=== PATIENT | female | born 1945 | race Caucasian/White ===

== ENCOUNTER 2017-02-02 11:39 | Day surgery (SDC) | payer OTHER ==
--- NOTE | ~2017-02-02 | OP ---
Record Of Operation [facility] [address] [place]. [address] NAME: LISETH KRAUSE : 41 STATUS : [facility]#: [id number] AGE: 72 ADM/REG DATE : 02/02/17 MR#: [id number] REPORT SERV DATE: 02/02/17 DICTATED BY: LUPE HERNANDEZ DATE: 02/02/17 REPORT STATUS : Draft TRANSCRIBED BY: MODL DATE: 02/02/17 DATE OF PROCEDURE: 02/02/2017 ATTENDING SURGEON: Lupe Hernandez M.D., General Surgery, present and scrubbed throughout. PREOPERATIVE DIAGNOSIS: Metastatic pancreatic cancer. POSTOPERATIVE DIAGNOSIS: Metastatic pancreatic cancer. PROCEDURE: Placement of Port-A-Cath with ultrasound guidance. ANESTHESIA: MAC. EBL: Less than 25 mL. COMPLICATIONS: None. SPECIMEN: None. BRIEF HISTORY: The patient is a very pleasant, white female, with a reported diagnosis of metastatic pancreatic cancer. The patient has elected to undergo chemotherapy and is in need of a Port-A-Cath due to phlebosclerosis. The risks, benefits, and alternatives to the procedure were explained to the patient in detail. The risks include, but are not limited to, bleeding, infection, reoperation, injury to surrounding structures, reactions to anesthetic medications, perioperative cardiopulmonary events, perioperative thromboembolic events, Port-A-Cath misplacement, possible . The patient stated clear understanding of all the risks and requested the procedure be done. DESCRIPTION OF PROCEDURE: After surgical consent was obtained. The patient was transported to the operative theater, onto the operating room table in supine position. MAC anesthesia was administered without difficulty. The patient's neck and chest were prepped and draped in a standard sterile fashion. A time-out was performed in order to ensure the proper patient, procedure, and perioperative antibiotics were given. Using ultrasound guidance, we identified the right internal jugular vein and accessed it using a needle. A guidewire was placed down the vein without difficulty and its placement was confirmed with fluoroscopy. Stab incision was made in the neck over the guidewire, and an incision was made in the right chest for the port placement. We injected this area with local anesthetic as well as the right neck. We then tunneled the catheter from the port site of the chest up to the right neck. The pull away sheath and dilator were placed over the guidewire and the guidewire and dilator were removed. The catheter was advanced down the pull away sheath and the sheath was removed. Under fluoroscopic guidance, we pulled back the catheter to just above the right atrium. It was cut at the port site and then attached to the port without difficulty. The system was able to be easily aspirated and flushed. We placed the port inside the chest wall cavity and secured it with interrupted Prolene sutures. We irrigated out the wounds with sterile saline and then closed the dermis with interrupted Vicryls. The epidermis was then closed with Dermabond. At the end the procedure, the instrument, lap, needle counts Record Of [address] [address] NAME: LISETH KRAUSE : 41 STATUS : [facility]#: [id number] AGE: 72 ADM/REG DATE : 02/02/17 MR#: [id number] REPORT SERV DATE: 02/02/17 DICTATED BY: LUPE HERNANDEZ DATE: 02/02/17 REPORT STATUS : Draft TRANSCRIBED BY: CARLYLE DATE: 02/02/17 were all correct. The patient was awoken from anesthesia, having tolerated the procedure with difficulty, and returned to the PACU in stable condition. CATHLEEN/CARLYLE Lupe Hernandez MD / [id number] CC: MD Isela Plunkett MD
[~2017-02-02 11:39] MED LIST: ARIMIDEX1 PO; CALTRA600D PO; FIORINALC PO; FOSAMAX70 MG PO; MARI2.5 PO; OS500 PO; RYTHMOL150 MG PO; ULTRAM50 PO; ZOFRAN4 PO
[2017-02-02 12:17] LABS: HEMATOCRIT 38.6 % (36.0-48.0); HEMOGLOBIN 13.6 g/dL (12.0-16.0)
[2017-02-02 12:31] LABS: BUN (BLOOD UREA NITROGEN) 18 MG/DL (6-23); CALCIUM, SERUM 8.4 MG/DL (8.5-10.4); CHLORIDE, SERUM 106 MMOL/L (96-112); CO2 (CARBON DIOXIDE) 26 MMOL/L (24-34); CREATININE 0.53 MG/DL (0.55-1.02); GFR AFRICAN AMERICAN 108 ML/MIN (>=60); GFR NON AFRICAN AMERICAN 94 ML/MIN (>=60); GLUCOSE, SERUM 105 MG/DL (60-99); POTASSIUM, SERUM 3.7 MMOL/L (3.5-5.3); SODIUM, SERUM 140 MMOL/L (135-148)
== END 2017-02-02 16:25 | disposition home or self-care (01) ==
LOC: SDC 11:39
PROVIDERS: Transplant Surgery
PROC: 4A023N8 Measurement of Cardiac Sampling and Pressure, Bilateral, Percutaneous Approach (ICD-10-PCS; principal; 2017-02-02 12:45)
DX: C50.919 Malignant neoplasm of unspecified site of unspecified female breast (principal); C78.89 Secondary malignant neoplasm of other digestive organs; M81.0 Age-related osteoporosis without current pathological fracture; G43.909 Migraine, unspecified, not intractable, without status migrainosus; Z85.3 Personal history of malignant neoplasm of breast; Z88.5 Allergy status to narcotic agent; Z98.890 Other specified postprocedural states; Z88.8 Allergy status to other drugs, medicaments and biological substances; Z77.22 Contact with and (suspected) exposure to environmental tobacco smoke (acute) (chronic); Z90.49 Acquired absence of other specified parts of digestive tract; Z86.010 Personal history of colon polyps; Z87.442 Personal history of urinary calculi
CPT/HCPCS: 71010; 80048; 85014; 85018; 93005; C1788; J0690; J2405; J3010

== ENCOUNTER 2017-02-06 13:37 | Inpatient (IN) | payer OTHER ==
--- NOTE | ~2017-02-06 | DS ---
Discharge Summary [id number] [place]. [address] NAME: LISETH KRAUSE : 41 STATUS : DIS IN PAT#: [id number] AGE: 72 ADM/REG DATE : 02/06/17 MR#: [id number] REPORT SERV DATE: 02/09/17 DICTATED BY: NOE RIBERA DATE: 02/08/17 REPORT STATUS : Draft TRANSCRIBED BY: MODL DATE: 02/08/17 ADMISSION DATE: 02/06/2017 DISCHARGE DATE: 02/08/2017 DISCHARGE DIAGNOSES: 1. Nausea and vomiting, chemotherapy induced. 2. Metastatic pancreatic cancer with liver metastasis. 3. Pancytopenia, chemotherapy induced. 4. History of atrial flutter, status post ablation. CONSULTATION: Oncology, Dr. Roger Gutierrez. LABORATORY DATA: WBC 8.9, hemoglobin 9.8, hematocrit 28.1, and platelet count 133. Sodium is 140, potassium is 4.2, chloride is 106, CO2 is 27, BUN is 21, creatinine of 0.50, glucose is 131, calcium is 8.9, and magnesium is 1.9. COURSE OF HOSPITAL STAY: Please refer to history and physical dictated by Dr. Chucho Liriano on 02/06/2017 for complete admission details. This patient is a 72-year-old female with a history of metastatic pancreatic cancer with known liver metastasis who presented as a direct admission from Dr. Roger Gutierrez's office due to persistent nausea and vomiting. The patient had completed one cycle of chemotherapy and had persistent nausea and vomiting following unable to keep anything down. The patient was admitted for IV hydration and nausea control. 1. Nausea and vomiting, chemo induced. As noted above, the patient completed one cycle of chemotherapy. The patient was admitted for IV hydration and antiemetics. The patient was started on Decadron IV as well as Compazine scheduled dosing as well as Zofran p.r.n. for breakthrough nausea. The patient will be discharged home with Compazine 10 mg three times a day as well as Zofran p.r.n. Marinol was increased to 5 mg dosing, to be re-evaluated as an outpatient with Dr. Gutierrez. 2. Metastatic pancreatic cancer with known liver metastasis. The patient will follow up with Dr. Gutierrez on 02/14/2017 at 0130 hours to discuss possible treatment and to discuss possible chemotherapy that day. 3. Pancytopenia, chemo induced. As noted, when the patient was admitted, WBC count was 2.1, hemoglobin was 10.10, hematocrit was 30.7, and platelet count of 125. It was noted at this time WBC count is 8.9, hemoglobin of 9.8, hematocrit of 28.1, and platelet count is 133. No transfusions were needed during her hospital stay. These will be followed up with Dr. Gutierrez as an outpatient. 4. History of atrial flutter, status post ablation. The patient's Rythmol was continued during her hospital stay. No abnormalities noted during this time. DISCHARGE MEDICATIONS: 1. Calcium plus vitamin D 600 mg p.o. daily. 2. Marinol 5 mg one p.o. breakfast and supper. 3. Rythmol 150 mg one p.o. every 12 hours. 4. Compazine 10 mg three times daily. Discharge Summary [address] [address] NAME: LISETH KRAUSE : 41 STATUS : DIS IN PAT#: [id number] AGE: 72 ADM/REG DATE : 02/06/17 MR#: [id number] REPORT SERV DATE: 02/09/17 DICTATED BY: NOE RIBERA DATE: 02/08/17 REPORT STATUS : Draft TRANSCRIBED BY: CARLYLE DATE: 02/08/17 5. Ultram 50 mg one p.o. three times daily p.r.n. for pain. 6. Zofran 4 mg ODT p.r.n. every four hours p.r.n. for nausea. 7. Fiorinal capsule, one capsule p.o. every four hours p.r.n. 8. Fosamax 70 mg p.o. every seven days. This patient is being discharged home in hemodynamically stable condition, will follow up with Dr. Roger Gutierrez's office and see his nurse practitioner, Xiomy Goins on 02/14/2017. Prescriptions for the patient were provided, Zofran and Compazine. The patient is aware to increase her Marinol to 5 mg twice daily. Does state that she has the medication at home. Does not need a prescription. This discharge took less than 30 minutes. DICTATED BY: NEHEMIAS Herrmann/CARLYLE Noe Ribera NP / [id number] CC: Minda [place] MD
--- NOTE | ~2017-02-06 | HP ---
History And Physical [address] [place]. [address] NAME: LISETH KRAUSE : 41 STATUS : ADM IN [facility]#: [id number] AGE: 72 ADM/REG DATE : 02/06/17 MR#: [id number] REPORT SERV DATE: 02/06/17 DICTATED BY: MERLENE CARD II DATE: 02/06/17 REPORT STATUS : Draft TRANSCRIBED BY: MODWandy DATE: 02/06/17 DATE OF ADMISSION: 02/06/2017 PRIMARY ONCOLOGIST: Roger Gutierrez M.D. CHIEF COMPLAINT: Nausea and vomiting. HISTORY OF PRESENT ILLNESS: The patient is a 72-year-old female with a history of metastatic pancreatic cancer with liver METS who presented to [facility] from Dr. Gutierrez's office due to persistent nausea and vomiting. The patient was recently diagnosed on the after having difficulty with abdominal discomfort, nausea, and weight loss over the past month or so. She had nausea prior to her chemotherapy, but noted some worsening of her nausea and vomiting after initiation of chemotherapy this past Monday. Otherwise, she denies any abdominal pain, diarrhea, fevers, chills, shortness of breath, chest pain. REVIEW OF SYSTEMS: Otherwise negative except for HPI. PAST MEDICAL HISTORY: 1. Stage I breast cancer previously treated without recurrence. 2. Newly diagnosed metastatic pancreatic cancer with liver METS. 3. History of atrial flutter, status post ablation. SURGICAL HISTORY: 1. Port-A-Cath placement. 2. Bilateral mastectomy. HOME MEDICATIONS: Fosamax, Fiorinal, Caltrate, Marinol, Zofran, Rythmol, Ultram. FAMILY HISTORY: Significant for lung cancer and throat cancer in first degree relatives. SOCIAL HISTORY: The patient denies any alcohol, tobacco, or drug use. She is currently , living with her spouse. PHYSICAL EXAMINATION: VITAL SIGNS: Blood pressure 150/78, temperature 98.1, pulse 100, respirations 18, and O2 saturation 97% on room air. GENERAL: The patient is alert and oriented x3, in no acute distress. NECK: Supple. Nontender. No lymphadenopathy or thyromegaly. HEENT: Moist mucous membranes. Pupils are equal, round, and reactive to light. Conjunctivae clear. RESPIRATORY: Lungs clear to auscultation bilaterally. No wheezes, rhonchi, or rales. CARDIOVASCULAR: Regular rate and rhythm. No murmurs, rubs, or gallops. ABDOMEN: Soft, nontender, nondistended. Normoactive bowel sounds. EXTREMITIES: No cyanosis, clubbing, or edema. SKIN: No lesions, rashes, or wounds. History And Physical [address] [place]. [address] NAME: LISETH KRAUSE : 41 STATUS : ADM IN [facility]#: [id number] AGE: 72 ADM/REG DATE : 02/06/17 MR#: [id number] REPORT SERV DATE: 02/06/17 DICTATED BY: MERLENE CARD II DATE: 02/06/17 REPORT STATUS : Draft TRANSCRIBED BY: CARLYLE DATE: 02/06/17 NEURO: No focal deficits. LABORATORY DATA: Pending. ASSESSMENT AND PLAN: The patient is a 72-year-old female with. 1. Nausea and vomiting related to her underlying metastatic pancreatic cancer, but also due to recent chemotherapy. We will treat supportively with IV fluids and antiemetics as well as the addition of Decadron and Compazine. We will also evaluate for malnutrition with a pre-albumin chemistry panel. We will check basic labs, mag and phos. Place the patient on electrolyte protocol. 2. Metastatic pancreatic cancer with liver METS, deferred to Oncology. 3. History of flutter, resume the patient's Rythmol. 4. The patient is full code. NATALIA/CARLYLE Merlene Card II, MD / [id number] CC: MD Isela Paez II, MD
[2017-02-06 16:48] LABS: HEMOGLOBIN 10.9 g/dL (12.0-16.0); MEAN CORPUS HGB CONC 35.5 g/dL (32.0-36.0); MEAN CORPUSCULAR HEMOGLOB 28.6 pg (26.0-34.0); MEAN PLATELET VOLUME 8.4 fL (9.2-13.0); RBC DISTRIBUTION WIDTH 12.9 % (12.0-16.0); RED CELL COUNT 3.81 10/6/uL (4.0-5.6)
[2017-02-06 16:54] LABS: HEMATOCRIT 30.7 % (36.0-48.0); MANUAL DIFF YES %; MEAN CORPUSCULAR VOLUME 80.6 fL (80-100); PLATELET COUNT 125 10/3/uL (150-400); WHITE BLOOD CELLS 2.1 10/3/uL (4.5-10.5)
[2017-02-06 17:08] LABS: ALKALINE PHOSPHATASE 73 U/L (45-117); CALCIUM, SERUM 8.6 MG/DL (8.5-10.4); CHLORIDE, SERUM 103 MMOL/L (96-112); CO2 (CARBON DIOXIDE) 26 MMOL/L (24-34); CREATININE 0.27 MG/DL (0.55-1.02); GFR AFRICAN AMERICAN 135 ML/MIN (>=60); GFR NON AFRICAN AMERICAN 117 ML/MIN (>=60); GLOBULIN 2.9 G/DL (2.5-4.1); GLUCOSE, SERUM 111 MG/DL (60-99); PHOSPHORUS, SERUM 2.7 MG/DL (2.5-4.5); POTASSIUM, SERUM 3.9 MMOL/L (3.5-5.3); PREALBUMIN 9.3 MG/DL (17.0-43.0); SGOT(AST) 16 U/L (5-40); SGPT(ALT) 19 U/L (5-65); SODIUM, SERUM 140 MMOL/L (135-148); TOTAL BILIRUBIN 0.9 MG/DL (0-1.2); TOTAL PROTEIN 5.9 G/DL (6.0-8.5); ULTRASENSITIVE TSH 0.851 MCIU/ML (0.358-3.740)
[2017-02-06 17:09] LABS: BUN (BLOOD UREA NITROGEN) 13 MG/DL (6-23)
[2017-02-06 17:38] LABS: BAND NEUTROPHILS 4 %; LYMPHOCYTES 5 %; LYMPHOCYTES ABSOLUTE (CALC) 0.11 10/3/uL (0.67-4.30); MONOCYTES 4 %; MONOCYTES ABSOLUTE (CALC) 0.08 10/3/uL (0.21-1.20); NEUTROPHILS ABSOLUTE (CALC) 1.91 10/3/uL (2.02-8.40); PLATELET ESTIMATE SLT DEC (ADEQUATE); SEGMENTED NEUTROPHIL (0) 87 %; TOTAL NUCLEATED CELLS 100
[2017-02-06 17:39] LABS: ACANTHOCYTES FEW (3-10/OIF)
[2017-02-08 05:12] LABS: BASOPHILS 0 %; EOSINOPHILS 0 %; HEMATOCRIT 28.1 % (36.0-48.0); HEMOGLOBIN 9.8 g/dL (12.0-16.0); IMMATURE GRANULOCYTES 0.4 %; IMMATURE GRANULOCYTES ABSOLUTE 0.04 10/3/uL (0.0-0.11); LYMPHOCYTES 9.7 %; LYMPHOCYTES ABSOLUTE 0.87 10/3/uL (0.67-4.30); MANUAL DIFF NO %; MEAN CORPUS HGB CONC 34.9 g/dL (32.0-36.0); MEAN CORPUSCULAR HEMOGLOB 28.3 pg (26.0-34.0); MEAN CORPUSCULAR VOLUME 81.2 fL (80-100); MEAN PLATELET VOLUME 8.7 fL (9.2-13.0); MONOCYTES 5.3 %; MONOCYTES ABSOLUTE 0.47 10/3/uL (0.21-1.20); NEUTROPHILS 84.6 %; NEUTROPHILS ABSOLUTE 7.56 10/3/uL (2.02-8.40); PLATELET COUNT 133 10/3/uL (150-400); RBC DISTRIBUTION WIDTH 13.3 % (12.0-16.0); RED CELL COUNT 3.46 10/6/uL (4.0-5.6); WHITE BLOOD CELLS 8.9 10/3/uL (4.5-10.5)
[2017-02-08 05:29] LABS: CALCIUM, SERUM 8.9 MG/DL (8.5-10.4); CHLORIDE, SERUM 106 MMOL/L (96-112); CO2 (CARBON DIOXIDE) 27 MMOL/L (24-34); GFR AFRICAN AMERICAN 111 ML/MIN (>=60); GFR NON AFRICAN AMERICAN 95 ML/MIN (>=60); GLUCOSE, SERUM 131 MG/DL (60-99); POTASSIUM, SERUM 4.2 MMOL/L (3.5-5.3); SODIUM, SERUM 140 MMOL/L (135-148)
[2017-02-08 05:30] LABS: BUN (BLOOD UREA NITROGEN) 21 MG/DL (6-23)
[2017-02-08] MEDS ORDERED: COMP5B PO (12:21)
[2017-02-08] MEDS ORDERED: ZOFRAN4 PO (12:22)
== END 2017-02-08 13:09 | disposition home or self-care (01) | DRG 917 ==
LOC: 4EA 13:37
PROVIDERS: Internal Medicine
DX: T45.1X5A Adverse effect of antineoplastic and immunosuppressive drugs, initial encounter (principal); D61.810 Antineoplastic chemotherapy induced pancytopenia; C25.9 Malignant neoplasm of pancreas, unspecified; C78.7 Secondary malignant neoplasm of liver and intrahepatic bile duct; R11.2 Nausea with vomiting, unspecified
CPT/HCPCS: 80048; 80053; 83735; 84100; 84134; 84443; 85025; A9270-GY; J2405

== ENCOUNTER 2017-02-26 14:46 | Inpatient (IN) | payer OTHER ==
--- NOTE | ~2017-02-26 | HP ---
History And Physical [address] [facility] [place]. [address] NAME: LISETH KRAUSE : 41 STATUS : ADM IN [facility]#: [id number] AGE: 72 ADM/REG DATE : 02/26/17 MR#: [id number] REPORT SERV DATE: 02/27/17 DICTATED BY: INGRID PETTIT DATE: 02/26/17 REPORT STATUS : Draft TRANSCRIBED BY: MODWandy DATE: 02/26/17 DATE OF ADMISSION: 02/26/2017 REASON FOR ADMISSION: Intractable nausea and vomiting. HISTORY OF PRESENT ILLNESS: A 72-year-old, white female with a history of metastatic pancreatic cancer with metastasis to the liver, followed closely by Dr. Gutierrez, presented to [facility] ER today for intractable nausea, vomiting, dehydration and weakness. The patient was diagnosed on 01/25/2017, after having difficulty with abdominal discomfort, nausea and weight loss. She has had a few rounds of chemotherapy and last dose was about a week and a half ago with Dr. Roger Gutierrez. Since then, she has been having some intractable nausea, vomiting, and dehydration. Dr. Gutierrez has been giving her IV fluid infusions on Monday, Monday, and and started her on Decadron on Monday, but the patient is unable to keep anything down. She presents to the ER again with intractable nausea and vomiting. In the ER, she was given a dose of Zofran, Dilaudid, and a liter of IV fluids. Denies any fever, chills, chest pain, or shortness of breath. REVIEW OF SYSTEMS: As per HPI. Otherwise, 10-point system was reviewed and was negative. PAST MEDICAL HISTORY: Stage I breast cancer, previously treated without recurrence, newly diagnosed metastatic pancreatic cancer with liver metastasis, history of atrial flutter, status post ablation, controlled on Rythmol. PAST SURGICAL HISTORY: Port-A-Cath placement and bilateral mastectomy. HOME MEDICATIONS: Fosamax 70 mg every seven days, weekly on Fridays, Fiorinal cap p.r.n. pain, Caltrate 600+ D daily, Decadron 4 mg twice a day, Advil p.r.n. pain, Ativan 0.5 mg twice a day, Remeron 15 mg at bedtime, Phenergan p.r.n. nausea, Rythmol 150 mg every 12 hours, and Ultram p.r.n. pain. ALLERGIES: PHENERGAN CAUSES A HEADACHE AND CODEINE CAUSES A RASH. FAMILY HISTORY: Significant for lung cancer and throat cancer in first-degree relatives. SOCIAL HISTORY: She denies any alcohol, tobacco, or drug use. Currently, she is and living with her and her daughter, and sister and brother help take care of her as well. PHYSICAL EXAMINATION: VITAL SIGNS: Blood pressure 156/89, temperature is 98.7, pulse is 109, and saturating 99% on room air. GENERAL: She is ill appearing, but no acute distress. Very pleasant. Alert and oriented x3. HEENT: Normocephalic and atraumatic head. Extraocular muscles are intact. Oropharynx is clear. History And Physical [address] [address] NAME: LISETH KRAUSE : 41 STATUS : ADM IN [facility]#: [id number] AGE: 72 ADM/REG DATE : 02/26/17 MR#: [id number] REPORT SERV DATE: 02/27/17 DICTATED BY: INGRID PETTIT DATE: 02/26/17 REPORT STATUS : Draft TRANSCRIBED BY: CARLYLE DATE: 02/26/17 NECK: Supple. No JVD. CARDIAC: Regular rhythm with tachycardia. No murmurs, rubs, or gallops. PULMONARY: Clear to auscultation bilaterally. ABDOMEN: Soft, nontender, and nondistended. Positive bowel sounds. EXTREMITIES: No clubbing, cyanosis, or edema. SKIN: Warm and dry. PSYCHIATRIC: The patient is cooperative. Mood is appropriate. LABORATORY DATA: Labs show a white blood cell count 8.9, hemoglobin 11.8, platelet of 192, potassium 3.0, creatinine 0.37, albumin 3.3. IMPRESSION: 1. Intractable nausea and vomiting. 2. Metastatic pancreatic cancer to liver. 3. History of atrial flutter, controlled on Rythmol. PLAN: To do IV fluids. Zofran along with Compazine. Pain control. Obtain a KUB to evaluate any abdominal reasons for nausea and vomiting. We will do IV Decadron. Started on a clear liquid diet, advance as tolerated. Replace her potassium. The patient is a full code. Likely here for two to three days. CURTIS/CARLYLE Ingrid Pettit MD / [id number] CC: Minda Johnston MD Davey B. Daniel, M.D.
--- NOTE | ~2017-02-26 | DS ---
Discharge Summary [address] [place]. [address] NAME: LISETH KRAUSE : 41 STATUS : DIS IN PAT#: [id number] AGE: 72 ADM/REG DATE : 02/26/17 MR#: [id number] REPORT SERV DATE: 03/03/17 DICTATED BY: DATE: REPORT STATUS : Draft TRANSCRIBED BY: MODL DATE: 03/02/17 ADMISSION DATE: 02/26/2017 DISCHARGE DATE: 03/01/2017 DISCHARGE DIAGNOSES: 1. Stage IV pancreatic cancer with metastases to the liver. 2. Intractable nausea and vomiting. 3. History of atrial flutter. 4. Hypokalemia. DISCHARGE MEDICATIONS: Per [facility]. For full H and P, please refer to Dr. Yves Pettit's dictation on 02/26/2017. IMAGING: Includes CT of the abdomen and pelvis with contrast, which demonstrated increased metastatic burden in the liver, large neoplastic changes in the pancreatic head. There was dilatation of the pancreatic ductal system in the body and tail. There was significant progression of metastatic disease. HOSPITAL COURSE: Ms. Krause is an unfortunate 72-year-old lady with stage IV metastatic pancreatic cancer, which on imaging as mentioned above has progressed. She underwent several rounds of chemo prior to admission. She was admitted with intractable nausea, vomiting, failure to thrive, or somewhat unable to control her nausea; however, she was unable to take p.o. In consultation with Oncology team, it was decided that the best option for the patient was hospice. She will be under the service of [facility], here in the hospital under the care of Dr. Parish Abdul. DICTATED BY: NEHEMIAS Hannah/CARLYLE Santiago Schafer NP / [id number] CC: MD Isela Ramírez MD
--- NOTE | ~2017-02-26 | HP ---
History And Physical [address] [place]. [address] NAME: LISETH KRAUSE : 41 STATUS : DIS IN PAT#: [id number] AGE: 72 ADM/REG DATE : 02/26/17 MR#: [id number] REPORT SERV DATE: 03/02/17 DICTATED BY: PARISH OLIVAREZ DATE: 03/01/17 REPORT STATUS : Draft TRANSCRIBED BY: CARLYLE DATE: 03/01/17 DATE OF ADMISSION: 02/26/2017 The patient is a 72-year-old, who was just diagnosed with stage IV pancreatic cancer in January of 2017. She had several doses of chemotherapy and that did not seem to help, and she was found to have liver mets, and she had nausea and vomiting resistant to multiple rounds of IV fluids. She complains of abdominal pain that is burning in nature, 8/10, for the last two months. PERTINENT PAST MEDICAL HISTORY: She had atrial fib/flutter. She would vasovagal and collapse when she had nausea. She had ablation about 14 months ago. She also has cachexia/adult failure to thrive. She had history of breast cancer which was treated with bilateral mastectomy. SURGERY: She has had bilateral mastectomy and port, and the ablation mentioned above. SOCIAL HISTORY: She is nonsmoker and nondrinker. , one child plus two step children. She worked in both candy factories and pump factories. She has sensitivity to codeine and Phenergan. REVIEW OF SYSTEMS: The patient is somewhat obtunded and sleepy, but I got one to two-word answers to a few questions, this included description and quantification of her pain. She denied any constipation, says she has had about a 35 pounds weight loss. She has had no dyspnea. Then, she went back to sleep. PHYSICAL EXAMINATION: GENERAL: This is emaciated white female, who is somewhat obtunded, lying curled up in the bed. VITAL SIGNS: Respirations 21, blood pressure 144/67, pulse 94, temperature 99. HEENT: Pupils are equal. Extraocular motions are intact. I do not see any jaundice. She has no carotid bruits heard. LUNGS: Clear without rales or wheezes. HEART: Regular sinus rhythm with no murmurs or gallops. ABDOMEN: Protuberant. Positive bowel sounds. Somewhat tender. EXTREMITIES: No edema in the legs. NEURO: She moves all extremities, and cranial nerves 2-12 are grossly intact. ASSESSMENT AND PLAN: This is a 72-year-old with stage IV pancreatic cancer and intractable nausea and vomiting. Admitted to [facility] for both the nausea and vomiting as well as pain. GP/MODL Parish History And Physical [address] [address] NAME: LISETH KRAUSE : 41 STATUS : DIS IN PAT#: [id number] AGE: 72 ADM/REG DATE : 02/26/17 MR#: [id number] REPORT SERV DATE: 03/02/17 DICTATED BY: PARISH OLIVAREZ DATE: 03/01/17 REPORT STATUS : Draft TRANSCRIBED BY: MODWandy DATE: 03/01/17 MD Franko / [id number] CC: MD Isela Ramírez MD
[2017-02-26 14:37] LABS: BASOPHILS 0 %; EOSINOPHILS 0 %; IMMATURE GRANULOCYTES 0.3 %; IMMATURE GRANULOCYTES ABSOLUTE 0.03 10/3/uL (0.0-0.11); LYMPHOCYTES 9.4 %; LYMPHOCYTES ABSOLUTE 0.84 10/3/uL (0.67-4.30); MEAN CORPUS HGB CONC 35.4 g/dL (32.0-36.0); MEAN CORPUSCULAR HEMOGLOB 28.6 pg (26.0-34.0); MEAN CORPUSCULAR VOLUME 80.6 fL (80-100); MEAN PLATELET VOLUME 8.4 fL (9.2-13.0); MONOCYTES 11.6 %; MONOCYTES ABSOLUTE 1.03 10/3/uL (0.21-1.20); NEUTROPHILS 78.7 %; RED CELL COUNT 4.13 10/6/uL (4.0-5.6); WHITE BLOOD CELLS 8.9 10/3/uL (4.5-10.5)
[2017-02-26 14:38] LABS: HEMATOCRIT 33.3 % (36.0-48.0); HEMOGLOBIN 11.8 g/dL (12.0-16.0); PLATELET COUNT 192 10/3/uL (150-400); RBC DISTRIBUTION WIDTH 16.3 % (12.0-16.0)
[2017-02-26 14:39] LABS: MANUAL DIFF NO %
[~2017-02-26 14:46] MED LIST changes: +COMP5B PO
[2017-02-26 14:48] LABS: INTERNATIONAL NORMAL RATI 1.3 UNITS (-); PARTIAL THROMBO TIME 31.1 SEC (22.5-37.2)
[2017-02-26 14:54] LABS: ALBUMIN 3.3 G/DL (3.5-5.0); ALKALINE PHOSPHATASE 64 U/L (45-117); CHEST PAIN PROFILE TAT 0 Hrs 23 Mins; CHLORIDE, SERUM 99 MMOL/L (96-112); CO2 (CARBON DIOXIDE) 25 MMOL/L (24-34); CREATININE 0.37 MG/DL (0.55-1.02); DIRECT BILIRUBIN 0.4 MG/DL (0.0-0.4); GFR AFRICAN AMERICAN 122 ML/MIN (>=60); GFR NON AFRICAN AMERICAN 105 ML/MIN (>=60); INDIRECT BILIRUBIN(NOT ORDER) 0.6 MG/DL (0.1-0.9); SGOT(AST) 9 U/L (5-40); SGPT(ALT) 13 U/L (5-65); SODIUM, SERUM 136 MMOL/L (135-148); TROPONIN I <0.02 NG/ML (<0.05)
[2017-02-26 14:56] LABS: BUN (BLOOD UREA NITROGEN) 10 MG/DL (6-23); GLUCOSE, SERUM 94 MG/DL (60-99)
[2017-02-26] MEDS ORDERED: REM15 PO (15:20)
[2017-02-26] MEDS ORDERED: ATV.5 PO (15:20)
[2017-02-26] MEDS ORDERED: ADVIL PO (15:21)
[2017-02-26] MEDS ORDERED: DEX4 PO (15:22)
[2017-02-26 22:15] LABS: BASOPHILS 0.1 %; BASOPHILS ABSOLUTE 0.01 10/3/uL (0.0-0.16); EOSINOPHILS 0 %; HEMOGLOBIN 11.7 g/dL (12.0-16.0); IMMATURE GRANULOCYTES 0.3 %; IMMATURE GRANULOCYTES ABSOLUTE 0.03 10/3/uL (0.0-0.11); LYMPHOCYTES 4.6 %; LYMPHOCYTES ABSOLUTE 0.41 10/3/uL (0.67-4.30); MEAN CORPUS HGB CONC 35.5 g/dL (32.0-36.0); MEAN CORPUSCULAR VOLUME 81.7 fL (80-100); MEAN PLATELET VOLUME 8.7 fL (9.2-13.0); MONOCYTES 3.9 %; MONOCYTES ABSOLUTE 0.35 10/3/uL (0.21-1.20); NEUTROPHILS 91.1 %; NEUTROPHILS ABSOLUTE 8.14 10/3/uL (2.02-8.40); PLATELET COUNT 182 10/3/uL (150-400); RBC DISTRIBUTION WIDTH 16.3 % (12.0-16.0); RED CELL COUNT 4.04 10/6/uL (4.0-5.6); WHITE BLOOD CELLS 8.9 10/3/uL (4.5-10.5)
[2017-02-26 22:16] LABS: MANUAL DIFF NO %
[2017-02-26 22:30] LABS: A/G RATIO 1.2 (0.7-1.9); ALBUMIN 3.1 G/DL (3.5-5.0); ALKALINE PHOSPHATASE 61 U/L (45-117); BUN (BLOOD UREA NITROGEN) 8 MG/DL (6-23); CALCIUM, SERUM 8.1 MG/DL (8.5-10.4); CHLORIDE, SERUM 103 MMOL/L (96-112); CO2 (CARBON DIOXIDE) 23 MMOL/L (24-34); CREATININE 0.37 MG/DL (0.55-1.02); GFR AFRICAN AMERICAN 122 ML/MIN (>=60); GFR NON AFRICAN AMERICAN 105 ML/MIN (>=60); GLOBULIN 2.6 G/DL (2.5-4.1); GLUCOSE, SERUM 98 MG/DL (60-99); PHOSPHORUS, SERUM 2.1 MG/DL (2.5-4.5); SGOT(AST) 11 U/L (5-40); SGPT(ALT) 14 U/L (5-65); SODIUM, SERUM 135 MMOL/L (135-148); TOTAL PROTEIN 5.7 G/DL (6.0-8.5)
[2017-02-27 05:15] LABS: BASOPHILS 0 %; EOSINOPHILS 0.1 %; EOSINOPHILS ABSOLUTE 0.01 10/3/uL (0.0-0.53); HEMATOCRIT 32.2 % (36.0-48.0); HEMOGLOBIN 11.3 g/dL (12.0-16.0); IMMATURE GRANULOCYTES 0.3 %; IMMATURE GRANULOCYTES ABSOLUTE 0.02 10/3/uL (0.0-0.11); LYMPHOCYTES 7.4 %; LYMPHOCYTES ABSOLUTE 0.52 10/3/uL (0.67-4.30); MEAN CORPUS HGB CONC 35.1 g/dL (32.0-36.0); MEAN CORPUSCULAR HEMOGLOB 28.2 pg (26.0-34.0); MEAN CORPUSCULAR VOLUME 80.3 fL (80-100); MEAN PLATELET VOLUME 8.9 fL (9.2-13.0); MONOCYTES 5.6 %; MONOCYTES ABSOLUTE 0.39 10/3/uL (0.21-1.20); NEUTROPHILS 86.6 %; NEUTROPHILS ABSOLUTE 6.04 10/3/uL (2.02-8.40); PLATELET COUNT 199 10/3/uL (150-400); RBC DISTRIBUTION WIDTH 16.5 % (12.0-16.0); RED CELL COUNT 4.01 10/6/uL (4.0-5.6)
[2017-02-27 05:18] LABS: MANUAL DIFF NO %
[2017-02-27 05:24] LABS: BUN (BLOOD UREA NITROGEN) 9 MG/DL (6-23); CALCIUM, SERUM 8.3 MG/DL (8.5-10.4); CHLORIDE, SERUM 104 MMOL/L (96-112); CO2 (CARBON DIOXIDE) 24 MMOL/L (24-34); CREATININE 0.33 MG/DL (0.55-1.02); GFR AFRICAN AMERICAN 127 ML/MIN (>=60); GFR NON AFRICAN AMERICAN 109 ML/MIN (>=60); GLUCOSE, SERUM 110 MG/DL (60-99); PHOSPHORUS, SERUM 2.5 MG/DL (2.5-4.5); SODIUM, SERUM 139 MMOL/L (135-148)
[2017-02-27 05:26] LABS: POTASSIUM, SERUM 3.8 MMOL/L (3.5-5.3)
[2017-02-28 05:27] LABS: BASOPHILS 0 %; EOSINOPHILS 0 %; HEMATOCRIT 29.1 % (36.0-48.0); HEMOGLOBIN 10.1 g/dL (12.0-16.0); IMMATURE GRANULOCYTES 0.3 %; IMMATURE GRANULOCYTES ABSOLUTE 0.02 10/3/uL (0.0-0.11); LYMPHOCYTES 5.2 %; MANUAL DIFF NO %; MEAN CORPUS HGB CONC 34.7 g/dL (32.0-36.0); MEAN CORPUSCULAR HEMOGLOB 28.5 pg (26.0-34.0); MEAN CORPUSCULAR VOLUME 82.2 fL (80-100); MEAN PLATELET VOLUME 8.7 fL (9.2-13.0); MONOCYTES 2.3 %; MONOCYTES ABSOLUTE 0.18 10/3/uL (0.21-1.20); NEUTROPHILS 92.2 %; PLATELET COUNT 171 10/3/uL (150-400); RBC DISTRIBUTION WIDTH 16.8 % (12.0-16.0); RED CELL COUNT 3.54 10/6/uL (4.0-5.6); WHITE BLOOD CELLS 7.7 10/3/uL (4.5-10.5)
[2017-02-28 05:40] LABS: BUN (BLOOD UREA NITROGEN) 11 MG/DL (6-23); CALCIUM, SERUM 8.3 MG/DL (8.5-10.4); CHLORIDE, SERUM 108 MMOL/L (96-112); CO2 (CARBON DIOXIDE) 23 MMOL/L (24-34); CREATININE 0.37 MG/DL (0.55-1.02); GFR AFRICAN AMERICAN 122 ML/MIN (>=60); GFR NON AFRICAN AMERICAN 105 ML/MIN (>=60); GLUCOSE, SERUM 96 MG/DL (60-99); PHOSPHORUS, SERUM 2.4 MG/DL (2.5-4.5); POTASSIUM, SERUM 3.5 MMOL/L (3.5-5.3); SODIUM, SERUM 141 MMOL/L (135-148)
[2017-03-01 05:22] LABS: BASOPHILS 0 %; EOSINOPHILS 0 %; HEMATOCRIT 29.1 % (36.0-48.0); HEMOGLOBIN 10.4 g/dL (12.0-16.0); IMMATURE GRANULOCYTES 0.3 %; IMMATURE GRANULOCYTES ABSOLUTE 0.03 10/3/uL (0.0-0.11); LYMPHOCYTES 6.1 %; LYMPHOCYTES ABSOLUTE 0.63 10/3/uL (0.67-4.30); MANUAL DIFF NO %; MEAN CORPUS HGB CONC 35.7 g/dL (32.0-36.0); MEAN CORPUSCULAR HEMOGLOB 29.1 pg (26.0-34.0); MEAN CORPUSCULAR VOLUME 81.3 fL (80-100); MEAN PLATELET VOLUME 8.9 fL (9.2-13.0); MONOCYTES ABSOLUTE 0.62 10/3/uL (0.21-1.20); NEUTROPHILS 87.6 %; NEUTROPHILS ABSOLUTE 9.13 10/3/uL (2.02-8.40); PLATELET COUNT 236 10/3/uL (150-400); RBC DISTRIBUTION WIDTH 16.8 % (12.0-16.0); RED CELL COUNT 3.58 10/6/uL (4.0-5.6); WHITE BLOOD CELLS 10.4 10/3/uL (4.5-10.5)
[2017-03-01 05:31] LABS: BUN (BLOOD UREA NITROGEN) 10 MG/DL (6-23); CALCIUM, SERUM 8.1 MG/DL (8.5-10.4); CHLORIDE, SERUM 102 MMOL/L (96-112); CO2 (CARBON DIOXIDE) 24 MMOL/L (24-34); CREATININE 0.31 MG/DL (0.55-1.02); GFR AFRICAN AMERICAN 129 ML/MIN (>=60); GFR NON AFRICAN AMERICAN 112 ML/MIN (>=60); GLUCOSE, SERUM 101 MG/DL (60-99); PHOSPHORUS, SERUM 2.7 MG/DL (2.5-4.5); POTASSIUM, SERUM 3.2 MMOL/L (3.5-5.3); SODIUM, SERUM 135 MMOL/L (135-148)
== END 2017-03-01 18:47 | disposition hospice, inpatient (51) | DRG 436 ==
LOC: ER 14:46 → 4EA 15:30
PROVIDERS: Emergency Medicine; Internal Medicine
DX: C25.9 Malignant neoplasm of pancreas, unspecified (principal); C78.7 Secondary malignant neoplasm of liver and intrahepatic bile duct; E87.6 Hypokalemia
CPT/HCPCS: 74020; 74177; 80048; 80053; 80076; 82150; 83690; 83735; 84100; 84484; 85025; 85610; 85730; 93005; 96374; 96375; 99285; A9270-GY; J0780; J1170; J2405; J3475; Q9967

== ENCOUNTER 2017-03-01 18:52 | Inpatient (IN) | payer OTHER ==
[~2017-03-01 18:52] MED LIST changes: +ADVIL PO; +ATV.5 PO; +DEX4 PO; +REM15 PO
[2017-03-03] MEDS ORDERED: DURA12 TOP (12:35)
[2017-03-03] MEDS ORDERED: H2 PO (12:36)
[2017-03-03] MEDS ORDERED: ATV1 PO (12:36)
[2017-03-03] MEDS ORDERED: REG5 PO (12:37)
[2017-03-03] MEDS ORDERED: T PO (12:37)
[2017-03-03] MEDS ORDERED: BISR PR (12:38)
[2017-03-03] MEDS ORDERED: DIL2TAB PO (12:39)
[2017-03-03] MEDS ORDERED: PROTONIX20 MG PO (12:40)
== END 2017-03-03 15:34 | disposition hospice, home (50) | DRG 436 ==
LOC: 4EA 18:52
DX: C25.1 Malignant neoplasm of body of pancreas (principal); C78.7 Secondary malignant neoplasm of liver and intrahepatic bile duct; E87.6 Hypokalemia
CPT/HCPCS: A9270-GY; C9113; J1170; J1630; J2765